=== PATIENT | female | born 1950 | race Caucasian/White ===

== ENCOUNTER 2019-12-12 07:00 | Inpatient (IN) | payer OTHER ==
[~2019-12-12] VITALS: Ht 160 cm; Wt 72.6 kg
[~2019-12-12 07:00] MED LIST: ALBUAER3 IN; ASPI-404 PO; HYDR25TA4 PO; LOSA-69 PO; METF-489 PO; SIMV10TA84 PO
[2019-12-12] MEDS ORDERED: ROPIVACAINE 0.5% (5MG/ML) 20ML AMPULE IJ ONE (14:23)
[2019-12-12] MEDS ORDERED: CLINDAMYCIN 600MG IV 50 ML IV ONE (14:26)
[2019-12-12] MEDS ORDERED: MIDAZOLAM HCL 1MG/1ML-2 ML VIAL ONE (14:36)
[2019-12-12] MEDS ORDERED: fentaNYL CITRATE 100 MCG/2 ML VL ONE (14:36)
[2019-12-12] MEDS ORDERED: PROPOFOL 10 MG/ML 20 ML IV ONE (14:41)
[2019-12-12] MEDS ORDERED: fentaNYL CITRATE 100 MCG/2 ML VL IV ONE (15:38)
[2019-12-12 15:45] VITALS: BP 128/55
[2019-12-12] MEDS ORDERED: hydrALAZINE HCL 20 MG/ML VL IV PRN (15:45)
[2019-12-12] MEDS ORDERED: fentaNYL CITRATE 100 MCG/2 ML VL IV PRN (15:45)
[2019-12-12] MEDS ORDERED: ONDANSETRON HCL 4 MG/2 ML VIAL IV PRN (15:45)
[2019-12-12] MEDS ORDERED: ePHEDrine SULFATE 50 MG/ML AMP IV PRN (15:45)
== END 2019-12-12 16:47 | disposition home or self-care (01) | DRG 481 ==
LOC: EDSTATUS 07:00 → OVERFLOW 08:33
PROVIDERS: ADMIT Orthopaedic Surgery; ATTEND Orthopaedic Surgery
PROC: 0SBC4ZZ Excision of Right Knee Joint, Percutaneous Endoscopic Approach (ICD-10-PCS; 2019-12-12)
PROC: 0QSG04Z Reposition Right Tibia with Internal Fixation Device, Open Approach (ICD-10-PCS; 2019-12-12)
PROC: 0QSB04Z Reposition Right Lower Femur with Internal Fixation Device, Open Approach (ICD-10-PCS; principal; 2019-12-12 14:25)
DX: S72.401B Unspecified fracture of lower end of right femur, initial encounter for open fracture type I or II (principal); M97.11XA Periprosthetic fracture around internal prosthetic right knee joint, initial encounter; S83.241A Other tear of medial meniscus, current injury, right knee, initial encounter; W01.0XXA Fall on same level from slipping, tripping and stumbling without subsequent striking against object, initial encounter; E11.9 Type 2 diabetes mellitus without complications; I10 Essential (primary) hypertension; Z79.82 Long term (current) use of aspirin; Z79.51 Long term (current) use of inhaled steroids; Y93.89 Activity, other specified; Y92.89 Other specified places as the place of occurrence of the external cause; Y99.8 Other external cause status; Z79.899 Other long term (current) drug therapy; Z88.5 Allergy status to narcotic agent; Z79.84 Long term (current) use of oral hypoglycemic drugs; Z82.61 Family history of arthritis; Z83.3 Family history of diabetes mellitus; Z82.49 Family history of ischemic heart disease and other diseases of the circulatory system
CPT/HCPCS: 73590; 76000; 82962; G0378; J2250; J2704; J3490

== ENCOUNTER 2025-09-04 06:29 | Day surgery (SDC) | payer OTHER ==
[2025-09-04] VITALS (9 sets, daily range): BP systolic 114–143; BP diastolic 51–67; PULSE 71–85; RESP 15–21; TEMP 97.5; O2SAT 93–96
[~2025-09-04] VITALS: Ht 157.5 cm; Wt 55.8 kg
[~2025-09-04 06:29] MED LIST changes: -ASPI-404 PO; +ASPI-543 PO; +CALC1TAB92 PO; -HYDR25TA4 PO; +HYDR25TA88 PO; +LOSA-534 PO; -LOSA-69 PO; -METF-489 PO; +POM INJ; -SIMV10TA84 PO; +SIMV20TA20 PO; +ZINC50TA7 PO
[2025-09-04] MEDS ORDERED: IODIXANOL 320MG/ML 100ML BTL IV ONE (07:17)
[2025-09-04] MEDS ORDERED: HEPARIN IN NS 1000Units/500mL 1,500 ML ONE (07:17)
--- NOTE | 2025-09-04 07:48 | ECG ---
[facility] Test Date: 2025-09-04 Test Time: 07:42:02 Pat Name: GERARD ROTH Department: Room: Gender: F Personal Fitness Manager: FRANSICO : 1950 Requested By: UZMA GONZALEZ Order Number: [id number] Reading MD: Josh Metzger Measurements Intervals [place] Rate: 69 P: 38 [place]: 212 QRS: -31 QRSD: 84 T: 29 QT: 416 QTc: 445 Interpretive Statements Sinus rhythm with 1st degree AV block Left axis deviation Electronically Signed On 09-04-2025 15:30:21 PDT by Josh Metzger Please click the below link to view image of tracing.
[2025-09-04] MEDS ORDERED: ANGIOMAX 250 MG VIAL IV ONE (08:06)
[2025-09-04] MEDS ORDERED: HEPARIN SODIUM (PORCINE) 5000 UNITS/ML 1ML VIAL ONE ×2 (08:06→08:21)
[2025-09-04] MEDS ORDERED: NITROGLYCERIN 50MG/250ML 250 ML IV ONE (08:07)
[2025-09-04] MEDS ORDERED: LIDOCAINE 2%HCL (LOCAL ANESTH.) INJ 20ML MDV ONE (08:07)
[2025-09-04] MEDS ORDERED: VERAPAMIL 2.5MG/ML INJ 2ML VIAL IV ONE ×2 (08:07→08:20)
[2025-09-04] MEDS ORDERED: MIDAZOLAM HCL 2MG/2ML 2ml VIAL (1mg/ml) ONE (08:07)
[2025-09-04] MEDS ORDERED: fentaNYL CITRATE 100 MCG/2 ML VL ONE (08:07)
[2025-09-04] MEDS ORDERED: SODIUM CHL 0.9% 0 ML ONE (08:08)
[2025-09-04] MEDS ORDERED: methylPREDNISolone SOD SUCC 125 MG/2 ML VL ONE (08:11)
[2025-09-04] MEDS ORDERED: diphenhydrAMINE HCL 50 MG/1 ML VL ONE (08:12)
[2025-09-04] MEDS ORDERED: FAMOTIDINE (10MG/ML) 2ML VL IV ONE (08:12)
--- NOTE | 2025-09-04 08:30 | DVHOP2 ---
Operative Report Operative Report CARDIAC TEXTILE CHEMIST PROCEDURE REPORT [place], [place] Date of Service: 09/04/25 [employer] Telephone Clerk: Uzma Gonzalez MD PROCEDURES PERFORMED: Coronary angiogram, left heart catheterization, conscious sedation administration and supervision, less than 15 minutes; fluoroscopy use and interpretation. PREOPERATIVE DIAGNOSES: multivessel cad calcium, preop eval POSTOP DIAGNOSIS: mild cad DESCRIPTION OF PROCEDURE: The patient or appropriate family signed informed consent understanding the risks, benefits and alternatives of the procedure, they wished to proceed. The patient was brought to the cardiac tag and label cutter in n.p.o. state. The patient was prepped in a sterile fashion. Sedation was used per cardiac cath protocol. I administered 2 mL of 2% lidocaine to the right wrist. With an antegrade front wall puncture. I cannulated the right radial artery and placed a 6-[place] Glidesheath slender. Next, an intra-arterial spasmolytic was administered. Next, a - 5French [place] catheter a were used for coronary angiogram and LVEDP measurement and pressure pullback. At the completion of procedure, all guides and wires were removed, and there were no immediate complications. FINDINGS: RCA: Moderate vessel off the right sinus of Valsalva, there is no severe flow limiting stenosis. LEFT MAIN: Moderate size left main, it bifurcates into LAD and circumflex. no stenosis CIRCUMFLEX: Moderate caliber vessel coming off the left main with no flow limiting stenosis. LAD: LAD is a moderate caliber vessel coming of the left main. no stenosis LVEDP of 7 mmhg CONCLUSIONS: 1. no severe cad noted 2 normal LEDP PLAN: Aggressive risk factor modification and medical management for the patient. [facility] pt is intermediate risk for any surgeries planned in future (has recent cavitary mass and workup ongoing) UZMA GONZALEZ MD Sep 04, 2025 08:30
== END 2025-09-04 10:55 | disposition home or self-care (01) ==
LOC: CATH 06:29
PROVIDERS: ATTEND Internal Medicine
DX: I25.10 Atherosclerotic heart disease of native coronary artery without angina pectoris (principal); E11.9 Type 2 diabetes mellitus without complications; J44.9 Chronic obstructive pulmonary disease, unspecified; Z88.5 Allergy status to narcotic agent; Z79.84 Long term (current) use of oral hypoglycemic drugs; Z79.4 Long term (current) use of insulin; Z90.49 Acquired absence of other specified parts of digestive tract; Z79.899 Other long term (current) drug therapy; Z90.710 Acquired absence of both cervix and uterus; Z88.8 Allergy status to other drugs, medicaments and biological substances
CPT/HCPCS: 93005; 93458; C1769; C1894; J1200; J1644; J2250; J2919; J3010; J3490; J7030; Q9967; 99152